=== PATIENT | female | born 1970 | race Caucasian/White ===

== ENCOUNTER → 2024-07-06 18:05 | Outpatient (REF) | payer BC, SELFPAY | LOC: RAD 18:05 | PROVIDERS: ATTENDING PHYSICIAN Nurse Practitioner Family | DX: R05.3 Chronic cough (principal) | CPT/HCPCS: 71046 ==

== ENCOUNTER → 2024-08-08 19:25 | Outpatient (REF) | payer BC, SELFPAY | LOC: WDC 19:25 | PROVIDERS: ATTENDING PHYSICIAN Nurse Practitioner Family; FAMILY PHYSICIAN Physician Assistant Medical | DX: Z12.31 Encounter for screening mammogram for malignant neoplasm of breast (principal) | CPT/HCPCS: 77063; 77067 ==

== ENCOUNTER → 2024-08-21 12:15 | Outpatient (REF) | payer BC, SELFPAY | LOC: RAD 12:15 | PROVIDERS: ATTENDING PHYSICIAN Internal Medicine Critical Care Medicine; FAMILY PHYSICIAN Physician Assistant Medical | DX: R06.02 Shortness of breath (principal) | CPT/HCPCS: 71250 ==

== ENCOUNTER → 2025-01-23 15:24 | Outpatient (REF) | payer BC, SELFPAY | LOC: DHSLP 15:24 | PROVIDERS: ATTENDING PHYSICIAN Internal Medicine; FAMILY PHYSICIAN Physician Assistant Medical | DX: G47.30 Sleep apnea, unspecified (principal); R06.83 Snoring | CPT/HCPCS: 95800 ==

== ENCOUNTER 2025-02-28 18:24 | Emergency (ER) | payer BC, SELFPAY ==
[2025-02-28 18:30] VITALS: BP 124/85
--- NOTE | 2025-02-28 20:49 | ED.MUSCINJ ---
HPI-Injury
General
Chief Complaint: Musculo-Skeletal Complaint
Source: patient
Exam Limitations: none
Time Seen by Provider: 02/28/25 20:34
History of Present Illness-Injury
Initial Injury comments:
54-year-old female presents complaining of left ankle and right wrist pain. She stepped into a duct with her left foot twisted her ankle but then fell backwards onto her right hand injuring her right wrist. She did not hit her head. She has been
unable to bear weight on the ankle. No other complaints at this time
Past History
Past History
ED Past Medical History: Asthma and GERD
ED Past Surgical History: Gynecological (Hysterectomy)
Social History
Tobacco: Non-smoker
Alcohol: Occasional
Drug: None
Personal:
Living: with family
Employment: Not employed
Family History
Family History: Cancer
Phy Exam
Physical Exam
Physical Exam:
General: Well-appearing female no acute respiratory distress
HEENT: Normocephalic atraumatic
Musculoskeletal exam: Left ankle swollen tender over the lateral aspect of the ankle no deformities the medial ankle is nontender. The foot is nontender the knee is nontender right wrist slightly tender dorsally but no deformity or swelling. The
left ankle has good active range of motion able to resist eversion and inversion
Skin: Abrasion noted lateral malleolus
Vascular: 2+ DP pulse left foot
Injury Course
Orders/Labs/Results
Orders:
Orders
02/28/25 18:34
Ankle, left 3 view CR [CR Ankle - Left Min 3 Views ] Urgent
Comment:
Reason For Exam: pain and swelling
02/28/25 18:35
Wrist, Right 3 Views [CR Wrist - Right Min 3 Views] Urgent
Comment:
Reason For Exam: pain after a fall
MDM/Problems Addressed
Differential Diagnosis Includes:
Left ankle pain and right wrist pain after a fall. Consider sprain versus fracture versus dislocation. I personally visualized x-rays of the left ankle and right wrist. Both of which are negative for acute fracture or dislocation. Patient having
difficulty bearing weight on the ankle secondary to pain. Will try orthopedic boot.
*Critical Care Note
Total Time (30-74mins, 75-104mins- exclusive of procedures): Not Applicable
ED Attending Note
-
Portions of this chart may have been created with voice recognition software.� Occasional wrong word or��sound alike� substitutions may have occurred due to the inherent limitations of voice recognition software.
Discharge Plan
Departure
Patient Disposition: Home (Routine Discharge)
Date of Disposition: 02/28/25
Time of Disposition: 20:54
Patient with high blood pressure during this ER visit?: No
Discharge Problem:
Ankle sprain
Instructions: Muscle and Bone Pain (DC)
Prescriptions:
No Action
sertraline 50 MG tablet
75 mg PO DAILY
famotidine 40 MG tablet
40 mg PO DAILY
albuterol sulfate 1 PUFF HFA aerosol inhaler
1 puff inhalation DAILY
fluticasone furoate [Veramyst] 10 GM spray,suspension
1 spray intranasal DAILY
ondansetron 4 MG tablet,disintegrating
4 mg PO TIDPRN PRN (Reason: NAUSEA) Qty: 15 0RF
ondansetron 4 MG tablet,disintegrating
4 mg PO TIDPRN PRN (Reason: nausea/vomiting) Qty: 10 0RF
dicyclomine 20 MG tablet
20 mg PO QIDPRN PRN (Reason: abdominal discomfort) Qty: 10 0RF
sucralfate 1 GM/10 ML suspension
1 gm PO BID Qty: 280 0RF
pantoprazole 40 MG tablet,delayed release (DR/EC)
40 mg PO DAILY Qty: 30 0RF
Referrals:
Scott Grande MD [Active] -
Activity Restrictions/Additional Instructions:
Use boot for support when ambulating. Elevate for swelling. Use Tylenol or ibuprofen for pain. Follow-up with orthopedics for further evaluation
Interventions
Interventions:
*Risk Screen - Suicide Last Done: 02/28/25 18:30
Discharge Date and Time
Print Language: TAIWANESE
== END 2025-02-28 22:06 | disposition home or self-care (01) ==
LOC: EMR 18:24
PROVIDERS: EMERGENCY PHYSICIAN Emergency Medicine; FAMILY PHYSICIAN Physician Assistant Medical
DX: S93.409A Sprain of unspecified ligament of unspecified ankle, initial encounter (principal); X50.1XXA Overexertion from prolonged static or awkward postures, initial encounter; J45.909 Unspecified asthma, uncomplicated; K21.9 Gastro-esophageal reflux disease without esophagitis; Z90.710 Acquired absence of both cervix and uterus
CPT/HCPCS: 99283; 73110; 73610